=== PATIENT | female | born 1950 | race Caucasian/White ===

== ENCOUNTER 2017-04-24 22:13 | Emergency (ER) | payer MEDICARE ==
[~2017-04-24] VITALS: Ht 170.2 cm; Wt 90.3 kg
[~2017-04-24 22:13] MED LIST: AUGMENTIN PO; CALCIUM 500 + D1 TAB PO; CLARITIN10 MG PO; DEXILANT60 MG PO; FAMOTIDINE PO; GAVISCON1 TAB PO; HYZAAR 100-25 T1 TAB PO; LIBRAX1 CAP 5/2. PO; MEVACOR PO; MICRO-K PO; NASACORT AQ16.5 GM; NEXIUM PO; SINGULAIR PO; SYNTHROID PO; VICODIN 5/500 T1 TAB PO; VITAMIN D2 PO; ZANTAC PO
== END 2017-04-25 00:30 | disposition home or self-care (01) ==
LOC: CED 22:13
DX: S60.561A Insect bite (nonvenomous) of right hand, initial encounter (principal); K21.9 Gastro-esophageal reflux disease without esophagitis; E03.9 Hypothyroidism, unspecified; E78.00 Pure hypercholesterolemia, unspecified; Z90.49 Acquired absence of other specified parts of digestive tract; Z88.1 Allergy status to other antibiotic agents; Z79.899 Other long term (current) drug therapy; W57.XXXA Bitten or stung by nonvenomous insect and other nonvenomous arthropods, initial encounter
CPT/HCPCS: 99282

== ENCOUNTER → 2017-05-10 | Outpatient (CLI) | payer OTHER ==
--- NOTE | ~2017-05-10 | CT114 ---
[facility] A Service of [facility] & [facility] RADIOLOGY TEXT RESULTS PATIENT: KATIE BRANTLEY LOCATION: [facility] : 54 UNIT #: [id number] AGE: [address]: Harvinder Bueno MD SEX: F ORDER DR: [id number] [facility] [address] [place], [place] [address] [id number] O MR#: [id number] [facility] #: [id number] NAME: KATIE BRANTLEY : 1950 SEX: F STUDY DATE/TIME: 05/10/2017 11:03 UNIT: [facility] ROOM: STUDY DESCRIPTION: CT Soft Tissue Neck W Cont Attending Physician: Harvinder Bueno M.D. Referring Physician: Harvinder Bueno M.D. Ordering Physician: Harvinder Bueno M.D. Primary Care Physician: Harvinder Bueno M.D. MEDICAL IMAGING REPORT This report is preliminary unless electronic signature is present EXAM Soft tissue neck CT with contrast, 05/10/2017 PROCEDURE Axial contrast-enhanced soft tissue neck CT with multiplanar reformats. This CT exam was performed with one or more of the following radiation dose reduction techniques: Automatic exposure control, adjustment of mA and/or kV according to patient size, and iterative reconstruction. COMPARISON None HISTORY Left side neck mass for about 6 weeks. FINDINGS There is a somewhat ill defined mass in the lower portion of the left parotid gland. It involves both the deep and superficial lobes of the gland. On axial images, it measures about 1.3 x 2.7 cm and measures about 2 cm in craniocaudal dimension. There are no contralateral parotid lesions or additional left parotid lesions. The submandibular salivary glands are normal and symmetric. No other potential primary mass is seen and while there are normal-sized cervical lymph nodes seen fairly symmetrically, there is no suspicious cervical adenopathy. The vascular structures are remarkable for some plaque at the carotid bifurcations, but the study is not optimized for estimation of carotid stenosis. Certainly, there is no evidence to suggest a critical carotid stenosis on either side. The visualized lung apices are unremarkable. There is spinal degenerative change but no acute bony abnormality. IMPRESSION 1. 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 [facility] A Service of [facility] & [facility] RADIOLOGY TEXT RESULTS PATIENT: KATIE BRANTLEY LOCATION: [facility] : 54 UNIT #: [id number] AGE: [address]: Harvinder Bueno MD SEX: F ORDER DR: retromandibular facial vein. It measures 1.3 x 2.7 cm on axial images and 2 cm in craniocaudal dimension. No additional parotid lesions or other salivary gland lesions are seen, and there is no suspicious adenopathy. The lesion would be amenable to ultrasound-guided needle aspiration if it would aid in clinical management. 2. Plaque is seen in the cervical carotid bifurcations without suggestion of critical stenosis, but the study is not optimized for evaluation of potential carotid stenosis, and no estimate of narrowing by NASCET or other criteria can be provided. Dictated by... Tod Jameson M.D. THIS IS AN ELECTRONICALLY VERIFIED REPORT Tod Jameson M.D. at 05/13/2017 4:07 PM TEV/psc TD: 05/11/2017 11:50 JOB #: [id number] MEDICAL IMAGING REPORT Page 1 of 1 COPY
[2017-05-10 14:51] LABS: POC - CREATININE 1.06 mg/dL (0.44-1.03)
== END | disposition home or self-care (01) ==
LOC: CCAT 08:16
PROVIDERS: Internal Medicine
DX: R59.1 Generalized enlarged lymph nodes (principal); K11.9 Disease of salivary gland, unspecified; I65.29 Occlusion and stenosis of unspecified carotid artery
CPT/HCPCS: 70491; 82565; Q9967